=== PATIENT | female | born 1995 | race Caucasian/White ===

== ENCOUNTER → 2016-05-13 | Outpatient (CLI) | payer OTHER ==
[~2016-05-13] MED LIST: BCPILLS PO; CALC625T PO; FERR1TAB23 PO; MULTTAB58 PO
--- NOTE | 2016-05-13 15:14 | DIAGNOSTIC IMAGING REPORT ---
LUMBAR SPINE 5 VIEWS CLINICAL HISTORY: Chronic low back pain. FINDINGS: 5 views of the lumbar spine are compared to study dated 07/22/[address] scan of lumbar spine dated 08/14/2015. The skeletal structures are well mineralized. There is no radiographic evidence of fracture or malalignment. Vertebral body height and alignment are maintained. The transverse and spinous processes are intact. There is no evidence of spondylolysis. The intervertebral disc spaces are well-maintained. The visualized bony pelvis appears intact. There is a nonobstructed abdominal bowel gas pattern. There is mild colonic fecal retention. Phleboliths are noted in the pelvis. IMPRESSION: Unremarkable radiographic evaluation of the lumbosacral spine. Electronically signed by: Jadiel Perera M.D. 05/13/2016 3:12 PM Dictated Date/Time: 05/13/2016 3:11 PM
== END | disposition home or self-care (01) ==
LOC: C.RDSM 11:33
PROVIDERS: ATTEND Family Medicine
DX: M54.5 Low back pain (principal)